=== PATIENT | female | born 1955 | race Caucasian/White ===

== ENCOUNTER 2017-07-19 10:52 | Emergency (ER) | payer SELFPAY ==
[~2017-07-19] VITALS: Ht 170.2 cm; Wt 60.2 kg
[2017-07-19 10:55] VITALS: BP 98/62
[2017-07-19] MEDS ORDERED: FLUO10CA7 PO (11:17)
[2017-07-19] MEDS ORDERED: ALPR0.257 SL (11:17)
== END 2017-07-19 11:42 | disposition home or self-care (01) ==
LOC: ED 11:26
DX: L50.9 Urticaria, unspecified (principal); F41.9 Anxiety disorder, unspecified; F32.9 Major depressive disorder, single episode, unspecified
CPT/HCPCS: 99283